=== PATIENT | male | born 1995 | race Caucasian/White ===

== ENCOUNTER 2021-07-27 18:57 | Emergency (ER) | payer OTHER ==
[2021-07-27 19:11] VITALS: BP 139/77; PULSE 77; TEMP 98.3; BMI 25.7
[2021-07-27] MEDS ORDERED: IBUPROFEN 600 MG TABLET (FP) PO ONE ×2 (19:44→20:12)
[2021-07-27] MEDS ORDERED: ACETAMINOPHEN 325 MG TABLET (FP) PO ONE (19:44)
[2021-07-27] MEDS ORDERED: LIDOCAINE 5% TOPICAL PATCH TP ONE (19:44)
[2021-07-27] MEDS ORDERED: LIDOCAINE 5% TOPICAL PATCH ONE (20:12)
[2021-07-27] MEDS ORDERED: ACETAMINOPHEN 325 MG TABLET (FP) ONE (20:12)
[2021-07-27] MEDS ORDERED: LIDOCAINE PATCH REMOVAL MC SCH (22:00)
== END 2021-07-27 22:24 | disposition home or self-care (01) ==
LOC: JERFT 18:57
DX: M25.552 Pain in left hip (principal); M25.531 Pain in right wrist; M54.50 Low back pain, unspecified; V03.00XA Pedestrian on foot injured in collision with car, pick-up truck or van in nontraffic accident, initial encounter
CPT/HCPCS: 70450-TC; 72050-TC-FY; 72070-TC-FY; 72100-TC-FY; 73110-TC-RT-FY; 73502-TC-LT-FY; 99285-25

== ENCOUNTER 2022-05-24 19:29 | Emergency (ER) | payer OTHER ==
[2022-05-24 19:36] VITALS: BP 127/72; PULSE 105; RESP 19; TEMP 97.9; BMI 26.5
[2022-05-24] MEDS ORDERED: CYCLOBENZAPRINE HCL 10 MG TABLET (FP) PO ONE (20:06)
[2022-05-24] MEDS ORDERED: KETOROLAC TROMETHAMINE 30 MG/1 ML VIAL IM ONE (20:06)
[2022-05-24] MEDS ORDERED: ACETAMINOPHEN 500 MG TABLET (FP) PO ONE (20:06)
[2022-05-24] MEDS ORDERED: ACETAMINOPHEN 500 MG TABLET (FP) ONE (20:12)
[2022-05-24] MEDS ORDERED: KETOROLAC TROMETHAMINE 30 MG/1 ML VIAL ONE (20:12)
[2022-05-24] MEDS ORDERED: CYCLOBENZAPRINE HCL 10 MG TABLET (FP) ONE (20:12)
== END 2022-05-24 21:12 | disposition home or self-care (01) ==
LOC: JER 19:29 → JERFT 19:29
PROC: 3E023GC Introduction of Other Therapeutic Substance into Muscle, Percutaneous Approach (ICD-10-PCS; principal; 2022-05-24)
DX: M54.2 Cervicalgia (principal); M25.561 Pain in right knee; M25.562 Pain in left knee; V49.40XA Driver injured in collision with unspecified motor vehicles in traffic accident, initial encounter
CPT/HCPCS: 72125-TC; 73560-TC-LT-FY; 73560-TC-RT-FY; 99284-25

== ENCOUNTER 2023-08-28 14:42 | Emergency (ER) | payer OTHER ==
[2023-08-28 14:50] VITALS: BP 145/89; PULSE 78; RESP 16; TEMP 98.3; BMI 30.8
[2023-08-28] MEDS ORDERED: TETRACAINE 0.5% OPHTH SOLN 2 ML BOTTLE ONE (16:07)
[2023-08-28] MEDS ORDERED: FLUORESCEIN NA 1 EA STRIP ONE (16:07)
[2023-08-28] MEDS: TETRACAINE 0.5% HCL 0.6ML DROPPER.BOTTLE OS ONE (16:10)
[2023-08-28] MEDS: FLUORESCEIN NA 1 EA STRIP OS ONE (16:10)
== END 2023-08-28 16:39 | disposition home or self-care (01) ==
LOC: JERFT 14:42
DX: H57.89 Other specified disorders of eye and adnexa (principal)
CPT/HCPCS: 99283-25